=== PATIENT | male | born 1995 | race Caucasian/White ===

== ENCOUNTER 2017-06-20 12:41 | Emergency (ER) | payer OTHER ==
[2017-06-20 12:48] VITALS: BP 130/82; PULSE 63; RESP 20; TEMP 98.1; O2SAT 99
[2017-06-20 13:35] LABS: URINE BILIRUBIN NEGATIVE (NEGATIVE); URINE BLOOD NEGATIVE (NEGATIVE); URINE CLARITY Clear (Clear); URINE COLOR Yellow (YELLOW); URINE GLUCOSE (UA) NORMAL (Normal); URINE LEUKOCYTE ESTERASE NEG Leu/uL (Negative); URINE NITRATE NEGATIVE (NEGATIVE); URINE PROTEIN NEGATIVE (NEGATIVE); URINE UROBILINOGEN NORMAL mg/dL (0.2-1.0)
--- NOTE | 2017-06-20 13:36 | C.PDOC ---
History Of Present Illness 22 y/o male presents to ED with worsen complaints of abdominal cramping and diarrhea for 3 days. Patient states symptoms have been intermittent for 6 months and reports migrating from [facility] 6 years ago. Patient is currently taking Ciprofloxacin, Metronidazole and Augmentin with no improvement. Patient states cramping abdominal pain is relieved with Diarrhea 3-4 times a day and reports 10lbs lost in the last 6 months. Patient denies rectal tenesmus, loss of appetite, fever, chills, or any other complaints at this time. Time Seen by Provider: 06/20/17 13:20 Chief Complaint (Nursing): Abdominal Pain History Per: Patient History/Exam Limitations: no limitations Onset/Duration Of Symptoms: Days Current Symptoms Are (Timing): Still Present Associated Symptoms: Diarrhea Past Medical History Reviewed: Historical Data, Nursing Documentation, Vital Signs Vital Signs: Last Vital Signs Temp 98.1 F 06/20/17 12:45 Pulse 63 06/20/17 12:45 Resp 20 06/20/17 12:45 BP 130/82 06/20/17 12:45 Pulse Ox 99 06/20/17 13:35 Family History: States: No Known Family Hx - Social History Hx Alcohol Use: No Hx Substance Use: No - Immunization History Hx Tetanus Toxoid Vaccination: No Hx Influenza Vaccination: No Hx Pneumococcal Vaccination: No Review Of Systems Except As Marked, All Systems Reviewed And Found Negative. Constitutional: Negative for: Fever, Chills Gastrointestinal: Positive for: Abdominal Pain, Diarrhea. Negative for: Rectal Pain Skin: Negative for: Rash Physical Exam - Physical Exam Appears: Non-toxic, No Acute Distress, Other (Well hydrated, Thin) Skin: Normal Color, Warm Head: Atraumatic, Normacephalic Oral Mucosa: Moist Cardiovascular: Rhythm Regular, No Murmur Respiratory: Normal Breath Sounds, No Rales, No Rhonchi, No Wheezing Gastrointestinal/Abdominal: Soft, No Tenderness, No Guarding, No Rebound Extremity: Normal ROM, Capillary Refill (<2 seconds) Neurological/Psych: Oriented x3 ED Course And Treatment O2 Sat by Pulse Oximetry: 99 (RA) Pulse Ox Interpretation: Normal Medical Decision Making Medical Decision Making: probable infectuous diarrha considering living in small [facility] Enclave x 6 yrs since immigrating, consider amoebiasis, giardia, salmonella no rash Failed outpatient prior tx for H.Pylori with Clarithromycin, Protonix- LOW susp of Gastritis Defer w/u now as prior w/u unhelpful Start empiric PO regimen with Cipro/Flagyl and f/u stool studies in Clinic later this week Disposition Doctor Will See Patient In The: Office Counseled Patient/Family Regarding: Studies Performed, Diagnosis - Disposition Referrals: [facility] [Outside] [facility] [Outside] [facility] [Outside] Disposition: HOME/ ROUTINE Disposition Time: 13:35 Condition: GOOD Additional Instructions: Lleva ceci muestra de los heces lo mas pronto Empiesa Cipro 500 mg dos veces al natasha por 1 semana Flagyl 250 mg kimberly veces al natasha por ceci semana Dieta blanda Cara alcohol Cara picante Sigue en la Clinia (kerri) para seguir los estudios de los heces, y para reevaluacion' Prescriptions: Ciprofloxacin [Cipro] 1 tab PO BID #14 tab metroNIDAZOLE [Flagyl] 250 mg PO TID #20 tab Instructions: Traveler's Diarrhea (ED), Chronic Diarrhea (ED) Forms: [employer] (Canadian), Work Excuse Print Language: DOMINICAN - Clinical Impression Clinical Impression: Chronic diarrhea - Scribe Statement The provider has reviewed the documentation as recorded by the Scribjelena Barboza All medical record entries made by the Scribe were at my direction and personally dictated by me. I have reviewed the chart and agree that the record accurately reflects my personal performance of the history, physical exam, medical decision making, and the department course for this patient. I have also personally directed, reviewed, and agree with the discharge instructions and disposition.
== END 2017-06-20 14:08 | disposition home or self-care (01) ==
LOC: C.ER 12:41
DX: K52.9 Noninfective gastroenteritis and colitis, unspecified (principal)